=== PATIENT | female | born 1980 | race Caucasian/White ===

== ENCOUNTER 2021-04-08 17:14 | Emergency (ER) | payer MEDICAID ==
[~2021-04-08] VITALS: Ht 167.6 cm; Wt 77.3 kg
[2021-04-08 17:38] VITALS: BP 115/85
[2021-04-08] MEDS ORDERED: SULF1TAB49 PO (17:49)
== END 2021-04-08 18:28 | disposition home or self-care (01) ==
LOC: ER 17:15
DX: L08.9 Local infection of the skin and subcutaneous tissue, unspecified (principal); Z88.1 Allergy status to other antibiotic agents; Z79.899 Other long term (current) drug therapy
CPT/HCPCS: 99283